=== PATIENT | male | born 1950 | race Caucasian/White ===

== ENCOUNTER 2019-07-08 09:25 | Day surgery (SDC) | payer MEDICARE ==
--- NOTE | 2019-06-26 13:00 | HP ---
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 HISTORY OF PRESENT ILLNESS: This is a 68-year-old male who complains of a lump on the dorsal aspect of his right thumb that has been present for the past couple of years. It got considerably larger about a year ago, but has been staying about the same size since then. The only time it bothers him really is when he plays the clarinet because it rests right on the lump. Otherwise, there is not really any pain. He has not had the lesion break open; it does not limit his range of motion or ability. He denies any associated numbness or tingling. He would like to have the mass removed. PAST MEDICAL HISTORY: Unremarkable. PAST SURGICAL HISTORY: Tonsillectomy. MEDICATIONS: None. ALLERGIES: No known drug allergies. FAMILY HISTORY: Diabetes. 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 He is avid runner and biker. He denies tobacco use and recreational drug use. He drinks alcohol on occasion. REVIEW OF SYSTEMS: Negative for general, cephalic, cardiovascular, respiratory , GI/, other musculoskeletal, integumentary, endocrine, neurologic, and hematologic symptoms. Infectious disease: Negative for MRSA, hepatitis C, HIV. PHYSICAL EXAMINATION GENERAL: Well-developed, well-nourished, 68-year-old male in no acute distress. VITAL SIGNS: Height 5 feet 10 inches, weight 181 pounds, pulse rate 60, blood pressure 148/90. HEENT: Normocephalic, atraumatic. Pupils are equal, round and reactive to light and accommodation. Extraocular movements are intact. NECK: Supple. No palpable lymph nodes. Throat is clear. PULMONARY: Lungs are clear to auscultation bilaterally. No wheezes, rales, or rhonchi. CARDIOVASCULAR: Regular rate and rhythm. S1, S2. No murmurs, rubs, or gallops. No edema. ABDOMEN: Positive bowel sounds, soft, nontender. MUSCULOSKELETAL: On exam of his right hand, he has a cystic mass on the dorsal aspect of the thumb just distal to the IP joint, it is minimally tender to palpation. He has full range of motion at the IP joint. Skin is intact. Neurovascular function intact. There is no deformity of the fingernail nor any erythema. NEUROLOGIC: Alert and oriented x3. Cranial nerves II through XII are intact. Sensation is intact to light touch. DIAGNOSTIC STUDIES: X-rays: AP, lateral and oblique of the right thumb show a dorsal osteophyte at the IP joint. IMPRESSION: Right thumb ganglion cyst secondary to arthritis. PLAN: The patient is scheduled to undergo an excision mass right thumb with Dr. Schwarz on 07/08/19. He will return to the office 10 days postop for followup and suture removal. A prescription for tramadol was e-scribed to the patient's pharmacy for postoperative pain management. TRESSA LU [id number]/[facility] #: [id number] THERESA
[~2019-07-08 09:25] MED LIST: Buffered Lidocaine 1% SYRIN* 1 ML/SYRINGE INTRADERM ONE; Dexamethasone IV* 4 MG/ML 1 ML (4 MG) IV SLOW PU ONE; Famotidine IV* 10 MG/ML 2 ML (20 mg) IV ONE; Lactated Ringers 1000 ML Bag* 1,000 ML IV SCH; Lidocaine 1% INJ* 10 MG/ML 30 ML SDV ONE
[2019-07-08] MEDS ORDERED: Famotidine IV* 10 MG/ML 2 ML (20 mg) ONE ×2 (09:37→10:21)
[2019-07-08] MEDS ORDERED: Dexamethasone IV* 4 MG/ML 1 ML (4 MG) ONE ×2 (09:37→10:21)
[2019-07-08] MEDS ORDERED: Acetaminophen TAB* 325 MG PO PRN (10:10)
[2019-07-08] MEDS ORDERED: fentaNYL* 50 MCG/ML 2 ML VIAL (100 MCG VIAL) IV PRN (10:10)
[2019-07-08] MEDS ORDERED: Naloxone* 0.4 MG/ML 1 ML VIAL IV PRN (10:10)
[2019-07-08] MEDS ORDERED: oxyCODONE/Acetamin 5/325 MG* TAB PO PRN (10:10)
[2019-07-08] MEDS ORDERED: Ondansetron INJ* 2 MG/ML VIAL IV PRN (10:10)
[2019-07-08] MEDS ORDERED: HYDROcodone/ACETAMIN 5-325 MG* 1 TAB PO PRN (10:10)
[2019-07-08] MEDS ORDERED: ceFAZolin 2 GM PREMIX in ORs 2 GM/50 ML BAG ONE (10:25)
[2019-07-08] MEDS ORDERED: Midazolam* 1 MG/ML 2 ML VIAL (2 MG) ONE (11:18)
[2019-07-08] MEDS ORDERED: Propofol* 10 MG/ML 20 ML BTL ONE (11:18)
[2019-07-08] MEDS ORDERED: Lidocaine 2% PF * 5 ML VIAL ONE (11:18)
[2019-07-08] MEDS ORDERED: fentaNYL* 50 MCG/ML 2 ML VIAL (100 MCG VIAL) ONE (11:18)
[2019-07-08] MEDS ORDERED: Ibuprofen TAB* 600 MG ONE (12:35)
[2019-07-08 13:03] VITALS: BP 98/53
--- NOTE | 2019-07-09 10:27 | OP ---
DATE OF OPERATION: 07/08/19 [facility] DATE OF : 52 SURGEON: Lluvia Schwarz MD HYDROSTATIC TUBING TESTER: TRESSA Connors ANESTHESIA: Local MAC. PRE-OP DIAGNOSIS: Right thumb mass. POST-OP DIAGNOSIS: Right thumb mass. OPERATIVE PROCEDURE: Right thumb mass excision. ESTIMATED BLOOD LOSS: Zero. TOURNIQUET TIME: About 15 minutes. INDICATIONS FOR PROCEDURE: Blair is a 68-year-old male who has a painful mass on the dorsal aspect of his right thumb. Clinically, it is a mucous cyst. He presents for excision. DESCRIPTION OF PROCEDURE: The patient was brought to the operating room, was given a sedation anesthetic and a digital block with 10 cc of 1% plain lidocaine. The skin of his right hand and forearm was prepped and draped in the usual sterile fashion. The thumb was exsanguinated with a Tourni-Cot which was left in place during the procedure. An H-shaped incision was made on the dorsal aspect of the DIP joint. We dissected through the subcutaneous tissue. Skin flaps were elevated over the cyst which was removed in its entirety including its stalk and connection to the IP joint. It was sent for pathology. The underlying osteophytes on either side of the extensor tendon were removed with a rongeur. The wound was irrigated and the skin edges reapproximated with 4-0 nylon suture. The wound was dressed with Xeroform, 4x4, Webril, and Coban. The patient tolerated the procedure well and was brought to the recovery room in good condition. [id number]/[facility] #: [id number] MTDD
== END 2019-07-08 13:00 | disposition home or self-care (01) ==
LOC: OREAST 09:25
PROVIDERS: ATTEND Orthopaedic Surgery
DX: M67.441 Ganglion, right hand (principal); M18.11 Unilateral primary osteoarthritis of first carpometacarpal joint, right hand
CPT/HCPCS: 88304; A9270-GY; J0690; J1100; J2250; J2704; J3010